=== PATIENT | male | born 1940 | race Caucasian/White ===

== ENCOUNTER 2019-03-25 11:19 | Inpatient (IN) | payer MEDICARE ==
[~2019-03-25] VITALS: Ht 157.5 cm; Wt 74.2 kg
[2019-03-25] MEDS ORDERED: ALLO100T PO (11:44)
[2019-03-25] MEDS ORDERED: ASPI81TA31 PO (11:44)
[2019-03-25] MEDS ORDERED: DOXA4TAB3 PO (11:44)
[2019-03-25] MEDS ORDERED: OLME40TA12 PO (11:44)
[2019-03-25] MEDS ORDERED: AMLO5TAB9 PO (11:44)
[2019-03-25] MEDS ORDERED: PARI1CAP PO (11:44)
[2019-03-25] MEDS ORDERED: SIMV-49 PO (11:44)
[2019-03-25] MEDS ORDERED: ENOXAPARIN SODIUM 60 MG/0.6 ML DISP.SYRIN SQ ONE ×2 (13:15→13:18)
[2019-03-25 13:46] LABS: CARBON DIOXIDE 28 mmol/L (21-32); CHLORIDE 108 mmol/L (98-107); CREATININE 3.1 mg/dL (0.6-1.3); GLUCOSE 93 mg/dL (74-106); POTASSIUM 4.9 mmol/L (3.5-5.1); UREA NITROGEN, BLOOD 43 mg/dL (7-18)
[2019-03-25 13:47] LABS: BASOPHILS % (AUTO) 0.6 % (0.0-2.0); EOSINOPHILS # (AUTO) 0.2 K/uL (0.0-0.7); EOSINOPHILS % (AUTO) 2.7 % (0.0-7.0); HEMATOCRIT 39.8 % (36.7-47.1); HEMOGLOBIN 13.2 g/dL (12.5-16.3); LYMPHOCYTES # (AUTO) 1.2 K/uL (20.0-40.0); LYMPHOCYTES % (AUTO) 20.2 % (20.5-51.5); MEAN CORPUSCULAR HEMOGLOBIN 29.9 uug (23.8-33.4); MEAN CORPUSCULAR HGB CONC 33 g/dL (32.5-36.3); MEAN CORPUSCULAR VOLUME 90.5 fL (73.0-96.2); MONOCYTES # (AUTO) 0.4 K/uL (2.0-10.0); MONOCYTES % (AUTO) 7.1 % (0.0-11.0); NEUTROPHILS % (AUTO) 69.4 % (38.5-71.5); PLATELET COUNT (AUTO) 163 K/uL (152-348); WHITE BLOOD COUNT (AUTO) 5.7 K/uL (3.6-10.2)
[2019-03-25 13:52] LABS: ALANINE AMINOTRANSFERASE 15 U/L (16-63); ALKALINE PHOSPHATASE 63 U/L (50-136); ASPARTATE AMINOTRANSFERASE 17 U/L (15-37); BILIRUBIN,DIRECT 0.1 mg/dL (0.0-0.2); BILIRUBIN,TOTAL 0.4 mg/dL (0.2-1.0); TOTAL PROTEIN, SERUM 6.9 g/dL (6.4-8.2)
[2019-03-25 14:22] LABS: *BILIRUBIN,URIN NEGATIVE (NEGATIVE); *BLOOD, URINE 2+ (NEGATIVE); *CLARITY,URINE CLEAR (CLEAR); *COLOR,URINE YELLOW (YELLOW); *KETONES,URINE NEGATIVE (NEGATIVE); *UROBILINOGEN,URINE 0.2 E.U./dl (NORMAL); LEUKOCYTE ESTERASE ,URINE NEGATIVE (NEGATIVE); NITRITE, URINE NEGATIVE (NEGATIVE); PH,URINE 5.5 (5.0-8.0); UGLUCOSE NEGATIVE (NEGATIVE)
[2019-03-25 14:34] LABS: BACTERIA,URINE NONE SEEN /HPF (NONE SEEN); WBC,URINE 0-3 /HPF (0-3)
[2019-03-25 14:35] LABS: MUCUS,URINE FEW /LPF (0-FEW); SQUAMOUS EPITHELIAL CELL,UR FEW /HPF (NONE SEEN)
[2019-03-25] MEDS ORDERED: MAGNESIUM HYDROXIDE 30 ML LIQUID UDC PO PRN (17:30)
[2019-03-25] MEDS ORDERED: ACETAMINOPHEN 325 MG TABLET PO PRN (17:30)
[2019-03-25] MEDS ORDERED: ONDANSETRON 4 MG/2 ML VIAL IV PRN (17:30)
[2019-03-25] MEDS ORDERED: Z GUARD REMEDY PASTE 57 GM TUBE TOP PRN (17:30)
[2019-03-25] MEDS ORDERED: HYDROCODONE/APAP 5-325MG TABLET PO PRN (17:30)
[2019-03-25 20:40] VITALS: BP 148/78
[2019-03-26 00:06] VITALS: BP_SYST 137; BP_SYST 141; BP_DIAS 64; BP_DIAS 78
[2019-03-26 05:16] VITALS: BP 113/69
[2019-03-26 06:21] LABS: BASOPHILS % (AUTO) 0.5 % (0.0-2.0); EOSINOPHILS # (AUTO) 0.2 K/uL (0.0-0.7); EOSINOPHILS % (AUTO) 3.3 % (0.0-7.0); HEMATOCRIT 35.5 % (36.7-47.1); LYMPHOCYTES # (AUTO) 1.4 K/uL (20.0-40.0); LYMPHOCYTES % (AUTO) 27.1 % (20.5-51.5); MEAN CORPUSCULAR HEMOGLOBIN 30.3 uug (23.8-33.4); MEAN CORPUSCULAR HGB CONC 34 g/dL (32.5-36.3); MEAN CORPUSCULAR VOLUME 89.3 fL (73.0-96.2); MONOCYTES # (AUTO) 0.5 K/uL (2.0-10.0); NEUTROPHILS % (AUTO) 60.1 % (38.5-71.5); PLATELET COUNT (AUTO) 166 K/uL (152-348); RED BLOOD CELL COUNT(AUTO) 3.98 MIL/uL (4.06-5.63)
[2019-03-26 06:49] LABS: CARBON DIOXIDE 26 mmol/L (21-32); CHLORIDE 110 mmol/L (98-107); GLUCOSE 90 mg/dL (74-106); MAGNESIUM 1.8 mg/dL (1.8-2.4); PHOSPHOROUS 3.3 mg/dL (2.5-4.9); POTASSIUM 4.6 mmol/L (3.5-5.1); UREA NITROGEN, BLOOD 40 mg/dL (7-18)
[2019-03-26 07:27] LABS: TRIGLYCERIDES 76 MG/DL (30-150)
[2019-03-26 07:28] LABS: CHOLESTEROL 121 mg/dL (<200); HDL CHOLESTEROL 34 mg/dL (40-60)
[2019-03-26] MEDS ORDERED: PARICALCITOL PO SCH (09:00)
[2019-03-26] MEDS ORDERED: AMLODIPINE 5 MG TABLET PO SCH (09:00)
[2019-03-26] MEDS ORDERED: ALLOPURINOL 100 MG TABLET PO SCH ×2 (09:00→21:00)
[2019-03-26] MEDS ORDERED: ASPIRIN 81 MG TAB.CHEW PO SCH (09:00)
[2019-03-26] MEDS ORDERED: DOXAZOSIN 2 MG TABLET PO SCH (09:00)
[2019-03-26] MEDS ORDERED: APIXABAN 5 MG TABLET PO SCH (09:00)
[2019-03-26 11:53] VITALS: BP 129/77
[2019-03-26] MEDS ORDERED: APIX5TAB PO (12:54)
[2019-03-26] MEDS ORDERED: SIMVASTATIN 40 MG TABLET PO SCH (21:00)
== END 2019-03-26 13:45 | disposition home or self-care (01) | DRG 300 ==
LOC: ER 11:19 → TELE3 18:24 → MEDSURG3 03-26 11:00
PROVIDERS: ADMIT Student in an Organized Health Care Education/Training Program; ATTEND Student in an Organized Health Care Education/Training Program
DX: I82.432 Acute embolism and thrombosis of left popliteal vein (principal); D68.59 Other primary thrombophilia; I82.442 Acute embolism and thrombosis of left tibial vein; I12.9 Hypertensive chronic kidney disease with stage 1 through stage 4 chronic kidney disease, or unspecified chronic kidney disease; N18.9 Chronic kidney disease, unspecified; M10.9 Gout, unspecified; Z87.891 Personal history of nicotine dependence; Z79.82 Long term (current) use of aspirin; I70.0 Atherosclerosis of aorta; E78.5 Hyperlipidemia, unspecified
CPT/HCPCS: 36415; 70030-TC; 71045; 83735; 84100; 85025; 85730; 93005; A4663; G0378; J1650; J8499